=== PATIENT | male | born 1970 | race Caucasian/White ===

== ENCOUNTER 2021-06-18 11:35 | Emergency (ER) | payer OTHER ==
[2021-06-18 12:43] VITALS: BP 119/82; PULSE 89; TEMP 98.7; BMI 23.1
== END 2021-06-18 13:50 | disposition home or self-care (01) ==
LOC: JERFT 11:35
DX: B35.0 Tinea barbae and tinea capitis (principal)
CPT/HCPCS: 99283-25

== ENCOUNTER 2022-12-28 04:24 | Day surgery (SDC) | payer OTHER ==
[2022-12-27 16:09] VITALS: BMI 24.5
[2022-12-28] MEDS ORDERED: LIDOCAINE HCL/PF 2% SDV 5ML VIAL ONE (13:23)
[2022-12-28] MEDS ORDERED: MIDAZOLAM HCL 2 MG/2 ML SINGLE DOSE VIAL ONE (13:23)
[2022-12-28] MEDS ORDERED: DEXAMETHASONE SOD PHOSPHATE 4 MG/1 ML VIAL ONE (13:25)
[2022-12-28] MEDS ORDERED: PROPOFOL 20 ML ONE (13:26)
[2022-12-28] MEDS ORDERED: oxyCODONE HCL 5 MG TABLET PO PRN ×2 (13:35→15:53)
[2022-12-28] MEDS ORDERED: ONDANSETRON 4 MG/2 ML VIAL IVPUSH PRN (13:35)
[2022-12-28] MEDS ORDERED: LACTATED RINGERS SOLUTION 1,000 ML IV SCH (13:45)
[2022-12-28] MEDS ORDERED: ceFAZolin SODIUM 1 GM VIAL ONE (14:36)
[2022-12-28] MEDS ORDERED: SODIUM CHLORIDE 0.9% P/F 10 ML VIAL IJ ONE (14:36)
[2022-12-28] MEDS ORDERED: ceFAZolin SODIUM 1 GM VIAL IVPB ONE ×2 (14:37→14:40)
[2022-12-28] MEDS ORDERED: ONDANSETRON 4 MG/2 ML VIAL ONE (14:48)
[2022-12-28] MEDS ORDERED: DEXTROSE 5%-0.45% SALINE 1,000 ML IV SCH (16:00)
[2022-12-28] MEDS: oxyCODONE HCL 5 MG TABLET PO PRN (19:54)
[2022-12-29] MEDS: CEFAZOLIN 1 GM in DEXTROSE 5%-WATER - 50 ML IVPB SCH ×3 (00:29→14:43)
[2022-12-29] MEDS: oxyCODONE HCL 5 MG TABLET PO PRN ×2 (00:38→04:22)
[2022-12-29 12:59] LABS: INR 1.2 (0.83-1.09); PROTHROMBIN TIME (PATIENT) 13.9 SEC (9.7-13.0)
[2022-12-29 13:11] LABS: HEMATOCRIT 34.4 % (35.4-49); HEMOGLOBIN 11.8 GM/dL (11.7-16.9); MCH 28.1 pg (25.7-33.7); MCHC 34.3 g/dl (32.0-35.9); MEAN PLT VOLUME 7.4 fl (7.5-11.1); PLATELET COUNT 592 10^3/uL (134-434); RBC 4.19 M/mm3 (4.00-5.60); RDW 13.6 % (11.9-15.9); WHITE BLOOD COUNT 22.7 K/mm3 (4.0-10.0)
[2022-12-29 13:15] LABS: ALBUMIN 2.4 g/dl (3.4-5.0); BLOOD UREA NITROGEN 25.5 mg/dL (7-18)
[2022-12-29 13:18] LABS: CREATININE 1.9 mg/dL (0.55-1.3)
[2022-12-29 13:20] LABS: BILIRUBIN,TOTAL 0.3 mg/dL (0.2-1); TOT PROT 7.4 g/dl (6.4-8.2)
[2022-12-29 14:49] LABS: ANISOCYTOSIS 1+; MACROCYTOSIS 0; OVALOCYTE 2+
[2022-12-30] MEDS ORDERED: MIDAZOLAM HCL 2 MG/2 ML SINGLE DOSE VIAL ONE (10:02)
[2022-12-30] MEDS ORDERED: FENTANYL CITRATE/PF 50 MCG/ML VIAL ONE (10:03)
[2022-12-30] MEDS: oxyCODONE HCL 5 MG TABLET PO PRN ×2 (11:51→18:52)
[2022-12-31 11:25] VITALS: BP 125/82; PULSE 75; RESP 18; TEMP 97.4
== END 2022-12-31 17:18 | disposition home or self-care (01) ==
LOC: JASU-SURG 04:24 → JASUSAT 04:24 → J6S 18:26 → JASUSAT 12-31 17:18
PROVIDERS: ATTEND Urology
PROC: 0T768DZ Dilation of Right Ureter with Intraluminal Device, Via Natural or Artificial Opening Endoscopic (ICD-10-PCS; 2022-12-28)
PROC: 0TCB8ZZ Extirpation of Matter from Bladder, Via Natural or Artificial Opening Endoscopic (ICD-10-PCS; principal; 2022-12-28 13:30)
PROC: 0T143JD Bypass Left Kidney Pelvis to Cutaneous with Synthetic Substitute, Percutaneous Approach (ICD-10-PCS; 2022-12-30)
DX: N13.2 Hydronephrosis with renal and ureteral calculous obstruction (principal); R33.8 Other retention of urine; N32.89 Other specified disorders of bladder
CPT/HCPCS: 0241U-QW; 36415; 50433; 76000-TC-FY; 76775-TC; 80053; 82962; 85025; 85610; 87070; 87075; 87086; 87102; 87116; 87205; 87206; 87210; 94760; C1729; C1758; C1769; C1887; C2617